=== PATIENT | female | born 1995 | race Caucasian/White ===

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

== ENCOUNTER 2017-04-09 13:50 | Emergency (ER) | payer BC, OTHER ==
[~2017-04-09] VITALS: Ht 167.6 cm; Wt 66.5 kg
[~2017-04-09 13:50] MED LIST: BCPILLS PO; DIPH1TAB87 PO
[2017-04-09 13:51] VITALS: TEMP 37; Ht 167.6 cm; Wt 66.5 kg
[2017-04-09] MEDS ORDERED: DiphenhydrAMINE HCL 50 MG/ML VIAL IV STA (14:06)
[2017-04-09] MEDS ORDERED: FAMOTIDINE IV INJ 20 MG in DEXTROSE 5% 100ML 100 ML IV STA (14:06)
[2017-04-09] MEDS ORDERED: DEXAMETHASONE INJ 10 MG in SYRINGE 0 ML IV STA (14:06)
[2017-04-09] MEDS ORDERED: FAMOTIDINE IV INJ 40 MG in DEXTROSE 5% 100ML 100 ML IV STA (14:10)
--- NOTE | 2017-04-09 14:16 | EMERGENCY ROOM VISIT NOTE ---
History First contact with patient: 14:06 Chief Complaint: ALLERGIC REACTION Stated Complaint: ALLERGIC REACTION Nursing Triage Summary: patient ate at a salad bar and had possible cross contamination of nuts. History of Present Illness The patient is a 21 year old female who presents to the Emergency Room with complaints of allergic reaction She finished class and then went to the salad bar. She had a salad and soon after started to feel her chest start to feel tight. She then developed hives on her chest and back and she came to the emergency department. She did not use her epi-pen which she has on her because she is allergic to nuts. She was in the ED last year for similar symptoms but were due to obvious ingestion of peanut oil. She believes that this time the salad bar was contaminated with nuts and therefore caused her reaction Here in the ED she continues to have chest tightness, tingling in her throat, shortness of breath Review of Systems CONSTITUTIONAL: No fever, chills, sweats or night sweats. No recent infections. No weight loss or weight gain. NEUROLOGIC: No headaches, dizziness or syncopal episodes. HEENT: No hearing or visual changes. No sinus or nasal issues. No mouth sores, thrush or oral lesions. CARDIOVASCULAR: No chest pain or palpitations. RESPIRATORY: N L: No nausea, vomiting, diarrhea, constipation, reflux, melena or hematochezia. GENITOURINARY: No dysuria, frequency, urgency, incontinence or hematuria. SKIN: Rash on chest and upper back HEMATOLOGIC: No bleeding or abnormal bruising Past Medical/Surgical History Medical Problems: (1) Allergy to nuts Social History Smoking Status: Never Smoker Alcohol Use: none Drug Use: none Occupation Status: [email or web address] student Current/Historical Medications Scheduled Control Pills ( Control Pills), 1 TAB PO HS Scheduled PRN Diphenhydramine Hcl (Benadryl Allergy), 50 MG PO Q6 PRN for ALLERGIC REACTION Allergies NKDA Physical Exam Vital Signs Date Time Temp Pulse Resp B/P (MAP) Pulse Ox O2 Delivery O2 Flow Rate FiO2 04/09/17 15:53 79 16 108/56 96 04/09/17 14:04 118 04/09/17 13:58 97 Room Air 04/09/17 13:51 37.0 124 20 131/80 97 Room Air Physical Exam General: patient appears tearful and anxious HEENT: Head - normocephalic and atraumatic. Pupils are equal, round, and reactive to light. Extraocular eye muscles are intact and sclera are anicteric. Nose - moist nasal mucosa without discharge. Mouth - moist buccal mucosa. Oropharynx is nonerythematous and there is no tonsillar exudate or edema noted. Neck: Supple; no JVD, nuchal rigidity, cervical lymphadenopathy, or auscultated bruits. Heart: Regular rate and rhythm. There is a normal S1 and S2 with no murmurs, clicks, or gallops appreciated. Patchy raised erythematous rash on upper chest and back Lungs: Clear to auscultation bilaterally with no wheezes, rales, or rhonchi. Abdomen: Soft, completely nontender, nondistended, with good bowel sounds. There are no palpable pulsatile masses or hepatosplenomegaly. There is no guarding, rigidity, or rebound noted. Extremities: No evidence of cyanosis, clubbing, or edema. There are easily palpable peripheral pulses. Medical Decision & Procedures Medications Administered Medications (Trade) Dose Ordered Sig/Danielle Route Start Time Stop Time Status Last Admin Dose Admin Diphenhydramine HCl (Benadryl Inj) 50 mg NOW STAT IV 04/09/17 14:06 04/09/17 14:09 DC 04/09/17 14:24 50 MG Famotidine 40 mg/ Dextrose 104 ml @ 200 mls/hr NOW STAT IV 04/09/17 14:10 04/09/17 14:41 DC 04/09/17 14:23 200 MLS/HR Dexamethasone Sodium Phosphate (Dexamethasone Inj Pf) 10 mg STK-MED ONCE .ROUTE 04/09/17 14:20 04/09/17 14:21 DC 04/09/17 14:24 10 MG Sodium Chloride 1,000 ml @ 999 mls/hr Q1H1M STAT IV 04/09/17 14:30 04/09/17 15:30 DC 04/09/17 14:47 999 MLS/HR ED Course 1330 - the patient was examined in c12. A full history and examination were performed 1345 - I discussed the case with Dr. Stark and I ordered the patient decadron, benadryl and famotidine IV 1410 - patient was reassessed and was feeling much better. Her only symptom is fatigue. Dr. Stark to discharge patient home Medical Decision The patient's history was concerning for possible allergic reaction. Differential diagnosis: Etiologies such as allergic reaction, anaphylaxis, urticaria, Rocha-Monico syndrome, toxic epidermal necrolysis, erythema multiforme, cellulitis, as well as others were entertained. Patient came in with hives after eating at a salad. She did not have any difficulty speaking and no wheezing or decreased breath sounds on exam. She was tachycardic when I saw her but otherwise was speaking in full sentences and was saturating well at room air. She was given decadron, famotidine and benadryl IV in ED. She was also given NS IVF. On reassessment she was without any symptoms without fatigue and she was feeling much better. She was discharged with follow up with her PCP Impression Primary Impression: Allergic reaction Departure Information Dispostion Home / Self-Care Condition GOOD Referrals [facility] (PCP) Patient Instructions My [facility] Problem Qualifiers Primary Impression: Allergic reaction Encounter type: subsequent encounter Qualified Codes: T78.40XD - Allergy, unspecified, subsequent encounter
[2017-04-09] MEDS ORDERED: DEXAMETHASONE **PF** INJ 10 MG/ML VIAL ONE (14:20)
[2017-04-09] MEDS ORDERED: SODIUM CHLORIDE 0.9% 1000ML 1,000 ML IV STA (14:30)
[2017-04-09 15:53] VITALS: BP 108/56; PULSE 79; O2SAT 96
--- NOTE | 2017-04-09 16:59 | EMERGENCY ROOM VISIT NOTE ---
History Report prepared by Ashley: Pawel Keane Under the Supervision of: Dr. Supa Stark D.O. First contact with patient: 13:54 Chief Complaint: ALLERGIC REACTION Stated Complaint: ALLERGIC REACTION Nursing Triage Summary: patient ate at a salad bar and had possible cross contamination of nuts. History of Present Illness The patient is a 21 year old female who presents to the Emergency Room with complaints of a persistent allergic reaction starting around 1300 today. The patient has an allergy to nuts, and she at a salad at a salad bar. She states that she did not eat any nuts though thinks that there might have been some contamination. The patient states that she is having hives mostly on her chest and back, redness, abdominal pain, chest tightness, and throat tightness. The patient reports that she has had two similar episodes in the past. She has not taken any medications, and she is able to swallow. The patient additionally notes that she has a cold. The patient denies any nausea, vomiting, and diarrhea. Source of History: patient Onset: 1300 Position: other (global) Quality: other (allergic reaction) Timing: other (persistent) Associated Symptoms: + chest pain (tightness), + SOB, + abdominal pain, No nausea, No vomiting Note: Throat tightness, hives, redness Review of Systems See HPI for pertinent positives & negatives. A total of 10 systems reviewed and were otherwise negative. Past Medical & Surgical Medical Problems: (1) Allergy to nuts Social History Smoking Status: Never Smoker Alcohol Use: none Drug Use: none Occupation Status: [employer] student Current/Historical Medications Scheduled Control Pills ( Control Pills), 1 TAB PO HS Scheduled PRN Diphenhydramine Hcl (Benadryl Allergy), 50 MG PO Q6 PRN for ALLERGIC REACTION Allergies Coded Allergies: Ibuprofen (Unverified Allergy, Unknown, UNKNOWN, 04/09/17) NUTS (Unverified Allergy, Unknown, HIVES, 04/09/17) Physical Exam Vital Signs Date Time Temp Pulse Resp B/P (MAP) Pulse Ox O2 Delivery O2 Flow Rate FiO2 04/09/17 15:53 79 16 108/56 96 04/09/17 14:04 118 04/09/17 13:58 97 Room Air 04/09/17 13:51 37.0 124 20 131/80 97 Room Air Physical Exam GENERAL: Sitting up in bed, talking in full sentences, no acute distress, non- toxic EYE EXAM: normal conjunctiva. OROPHARYNX: no exudate, no erythema, lips, buccal mucosa, and tongue normal and mucous membranes are moist NECK: no stridor, supple, no nuchal rigidity, no adenopathy, non-tender LUNGS: Clear to auscultation. Normal chest wall mechanics HEART: Tachycardic, no murmurs, S1 normal and S2 normal ABDOMEN: abdomen soft, non-tender, normo-active bowel sounds, no masses, no rebound or guarding. BACK: Back is symmetrical on inspection and there is no deformity, no midline tenderness, no CVA tenderness. SKIN: Diffuse erythematous blanching raised rash on the chest and back. No petechiae, no bruising UPPER EXTREMITIES: upper extremities are grossly normal. LOWER EXTREMITIES: No pitting edema. NEURO EXAM: Normal sensorium, cranial nerves II-XII grossly intact, normal speech, no gross weakness of arms, no gross weakness of legs. Gross sensation intact. Medical Decision & Procedures Medications Administered Medications (Trade) Dose Ordered Sig/Danielle Route Start Time Stop Time Status Last Admin Dose Admin Diphenhydramine HCl (Benadryl Inj) 50 mg NOW STAT IV 04/09/17 14:06 04/09/17 14:09 DC 04/09/17 14:24 50 MG Famotidine 40 mg/ Dextrose 104 ml @ 200 mls/hr NOW STAT IV 04/09/17 14:10 04/09/17 14:41 DC 04/09/17 14:23 200 MLS/HR Dexamethasone Sodium Phosphate (Dexamethasone Inj Pf) 10 mg STK-MED ONCE .ROUTE 04/09/17 14:20 04/09/17 14:21 DC 04/09/17 14:24 10 MG Sodium Chloride 1,000 ml @ 999 mls/hr Q1H1M STAT IV 04/09/17 14:30 04/09/17 15:30 DC 04/09/17 14:47 999 MLS/HR ED Course ED COURSE: Vital signs were reviewed and showed tachycardia The patients medical record was reviewed The above diagnostic studies were performed and reviewed. ED treatments and interventions as stated above. 1354: The patient was evaluated in room A12. A complete history and physical examination was performed. 1406: Benadryl 50mg IV 1410: Famotidine 40mg/ Dextrose 104ml @ 200mls/hr IV 1420: Dexamethasone Sodium Phosphate 10mg IV 1430: Sodium Chloride 1000 ml @ 999 mls/hr IV 1431: I reevaluated the patient, and she is feeling better, she is breathing better, and her rash is better. She just feels dizzy now. 1524: Upon reevaluation, the patient is doing better.I discussed my findings with the patient and she understands and agrees with the treatment plan. Based on the patients age, coexisting illnesses, exam and lab findings the decision to treat as an outpatient was made. The patient remained stable while under my care. The patient appeared well at the time of discharge. Medical Decision Differential diagnosis: Etiologies such as allergic reaction, anaphylaxis, urticaria, Rocha-Monico syndrome, toxic epidermal necrolysis, erythema multiforme, cellulitis, as well as others were entertained. Patient is a 21-year-old female who was seen independently of the resident that presents to ER on eating a salad 45 minutes ago with a diffuse erythematous blanching rash which appears to be hives. Patient admits mild tightness in her throat and trouble breathing. IV was established and patient was given steroids , Benadryl and famotidine. Patient had complete resolution of her symptoms. She was observed for close to hours. She was able tolerate liquids without trouble. Patient had no new complaints pressures discharged follow-up with PCP as an outpatient. Discussed with Pt concerning signs and symptoms to watch out for. Pt was instructed to follow up with their PCP and discussed with the patient their option to return to the ED at anytime for persistent or worsening symptoms. The appropriate anticipatory guidance and out-patient management, including indications for return to the emergency department, were explained at length to the patient and understood. Medication Reconcilliation Current Medication List: was personally reviewed by me Blood Pressure Screening Patient's blood pressure: Normal blood pressure Impression Primary Impression: Allergic reaction Scribe Attestation The scribe's documentation has been prepared under my direction and personally reviewed by me in its entirety. I confirm that the note above accurately reflects all work, treatment, procedures, and medical decision making performed by me. Departure Information Dispostion Home / Self-Care Referrals [facility] (PCP) Forms HOME CARE DOCUMENTATION FORM, IMPORTANT VISIT INFORMATION Patient Instructions ED Allergic Reaction General Other, My [facility] Additional Instructions Please follow up with your primary care doctor or if you are a student, [facility] with in the next 24 hours. Any worsening of your symptoms, please return to the ED immediately. This includes any fevers greater than 100.4, worsening pain, trouble breathing, trouble swallowing, swelling of the throat, chest pain, shortness breath, persistent nausea, vomiting, unable to eat or drink, or any other concerning signs or symptoms from your standpoint. You were given medications during this visit that will inhibit your ability to drive, operate machinery and work. Please do NOT drive, operate machinery, drink alcohol or work for the next 12hrs. If any of your symptoms recur please take 50 mg of Benadryl 36 hours or return immediately to the ER if anything worsens after the Benadryl. Problem Qualifiers Primary Impression: Allergic reaction Encounter type: initial encounter Qualified Codes: T78.40XA - Allergy, unspecified, initial encounter
== END 2017-04-09 15:55 | disposition home or self-care (01) ==
LOC: C.EDB 13:51 → C.EDA 15:55
DX: T78.1XXA Other adverse food reactions, not elsewhere classified, initial encounter (principal); X58.XXXA Exposure to other specified factors, initial encounter; Z91.010 Allergy to peanuts; Z79.3 Long term (current) use of hormonal contraceptives

== ENCOUNTER 2017-07-09 14:05 | Emergency (ER) | payer OTHER ==
[~2017-07-09] VITALS: Ht 165.1 cm; Wt 72.6 kg
[2017-07-09] MEDS ORDERED: METHYLPREDNISOLONE 125 MG VIAL IV STA (14:16)
[2017-07-09 14:17] VITALS: TEMP 36.4; Ht 165.1 cm; Wt 72.6 kg
[2017-07-09] MEDS ORDERED: BCPILLS PO (14:52)
[2017-07-09 14:54] LABS: HEMATOCRIT 40.3 % (37-47); HEMOGLOBIN 14.5 g/dL (12.0-16.0); MEAN CELL VOLUME 86.3 fL (80-100); MEAN PLATELET VOLUME 10.4 fL (7.4-10.4); PLATELET COUNT 439 K/uL (130-400); RED CELL DISTRIBUTION WIDTH CV 12.1 % (11.5-14.5); RED CELL DISTRIBUTION WIDTH SD 37.9 fL (36.4-46.3); WHITE BLOOD COUNT 10.85 K/uL (4.8-10.8)
--- NOTE | 2017-07-09 14:57 | DIAGNOSTIC IMAGING REPORT ---
CHEST ONE VIEW PORTABLE CLINICAL HISTORY: Chest pain. COMPARISON STUDY: No previous studies for comparison. FINDINGS: Lung volumes are at the lower limits of normal. There is no consolidation. No pneumothorax or pleural effusion is present. Cardiac size is normal. Mediastinal contours are normal. IMPRESSION: No acute cardiopulmonary findings. Electronically signed by: Edmund Roman M.D. 07/09/2017 2:56 PM Dictated Date/Time: 07/09/2017 2:55 PM
[2017-07-09 15:12] LABS: BLOOD UREA NITROGEN 14 mg/dl (7-18); CALCIUM 9.5 mg/dl (8.5-10.1); CARBON DIOXIDE 19 mmol/L (21-32); CREATININE 0.95 mg/dl (0.60-1.20); GLUCOSE 108 mg/dl (70-99); POTASSIUM 2.9 mmol/L (3.5-5.1); SODIUM 139 mmol/L (136-145)
[2017-07-09 15:19] LABS: BASO % 0.2 %; BASO ABS # 0.02 K/uL (0-0.2); EOS % 1.8 %; EOS ABS # 0.19 K/uL (0-0.5); IG# 0.04 K/uL (0.00-0.02); LYMPH % 53.1 %; LYMPH ABS # 5.76 K/uL (1.2-3.4); MONO ABS # 0.43 K/uL (0.11-0.59); NEUT % 40.5 %; NEUT ABS # 4.41 K/uL (1.4-6.5)
[2017-07-09] MEDS ORDERED: EPP3/2 IM (17:31)
[2017-07-09] MEDS ORDERED: PRED50TA PO (17:31)
[2017-07-09 18:37] VITALS: BP 99/49; PULSE 73; O2SAT 98
--- NOTE | 2017-07-09 20:57 | EMERGENCY ROOM VISIT NOTE ---
History First contact with patient: 14:15 Chief Complaint: ALLERGIC REACTION Stated Complaint: ALLERGIC REACTION Nursing Triage Summary: PT ARRIVED VIA EMS FROM [facility] FOR POSSIBLE ALLERGIC REACTION. PT STATES SHE WAS WORKING OUT AND BEGAN TO FEEL FACE/NECK/CHEST TIGHTNESS, STATES BECAME SHOB AT THAT TIME, SELF ADMINISTERED EPIPEN. EMS ON SCENE GAVE PT 4MG ZOFRAN , 50MG BENADRYL FOR NAUSEA, PT DRY HEAVING AT THAT TIME. History of Present Illness The patient is a 21 year old female who presents to the Emergency Room via ALS ambulance with complaints of an anaphylactic reaction while working out this afternoon. At approximately 1:30 PM, the patient reports that she started to develop facial swelling, burning, chest tightness and a rash. The patient self administered an EpiPen, and called 911. At the time of EMS arrival, the patient was significantly nauseated. She was administered IV Zofran and Benadryl. She was then transported to the emergency department, and currently reports significant improvement of her symptoms, except for feeling anxious and jittery. She denies any throat/tongue/lip swelling, shortness of breath, chest pressure or pain, palpitations, nausea or headache. The patient has a known history of peanut allergies. The patient reports that she ate sushi for lunch. She ate sushi at a restaurant that she has eaten at before. Patient also reports a history of seasonal allergies. She is currently under the management of an insole channeler at home. The patient denies any other recent upper respiratory infections. Review of Systems HEENT: Denies dizziness, visual problems, hearing loss, tinnitus. Denies difficulty swallowing or oral lesions. PULMONARY: Denies cough, shortness of breath, sputum production or hemoptysis. CARDIOVASCULAR: Denies chest pain, palpitations, dyspnea on exertion, orthopnea or peripheral edema. GASTROINTESTINAL: Denies diarrhea, constipation, nausea, vomiting, or abdominal pain. GENITOURINARY: Denies dysuria, frequency, urgency or nocturia. NEUROLOGIC: Denies history of epilepsy, CVA, TIA or chronic headaches. MUSCULOSKELETAL: Denies history of joint tenderness/swelling. SKIN: Denies rashes or lesions. PSYCHIATRIC: Denies history of depression or mental illness. ENDOCRINE: Denies history of diabetes or thyroid disorders. Past Medical/Surgical History Medical Problems: (1) Allergy to nuts (2) Seasonal allergies Surgical Problems: (1) No history of previous surgery Family History Unremarkable Social History Smoking Status: Never Smoker Alcohol Use: occasionally Marital Status: single Housing Status: lives with roommate Occupation Status: [employer] student Current/Historical Medications Scheduled Control Pills ( Control Pills), 1 TAB PO HS Control Pills ( Control Pills), 1 TAB PO DAILY Epinephrine (Epipen), 0.3 MG IM UD Prednisone (Prednisone), 50 MG PO DAILY Scheduled PRN Diphenhydramine Hcl (Benadryl Allergy), 50 MG PO Q6 PRN for ALLERGIC REACTION Physical Exam Vital Signs Date Time Temp Pulse Resp B/P (MAP) Pulse Ox O2 Delivery O2 Flow Rate FiO2 07/09/17 18:37 73 16 99/49 98 07/09/17 17:26 73 16 99/49 98 Room Air 07/09/17 15:09 99 07/09/17 14:17 36.4 84 18 115/59 100 Room Air 07/09/17 14:12 Room Air Physical Exam CONSTITUTIONAL: Healthy and well nourished. Alert and oriented X 3 with positive affect. Patient does not appear in any acute distress. HEENT: Normocephalic, atraumatic. Pupils equal, round and reactive. No facial edema, conjunctival injection or scleral icterus. OROPHARYNX: No evidence for angioedema, posterior pharyngeal erythema, tonsillar hypertrophy or exudates. NECK: Full active range of motion without discomfort. RESPIRATORY: Clear to auscultation bilaterally with no wheezing, crackles, rhonchi or stridor. CARDIOVASCULAR: Tachycardic on my exam with no murmurs, rubs or gallops. GASTROINTESTINAL: Bowel sounds present in all quadrants. Soft and nontender to palpation. MUSCULOSKELETAL: Full range of motion of all joints without discomfort. INTEGUMENTARY: No rash or other significant dermatologic conditions noted. HEMATOLOGIC: No ecchymosis or petechiae. NEUROLOGIC: Cranial nerves II-XII grossly intact. No focal neurologic deficits noted. Medical Decision & Procedures ER Provider Diagnostic Interpretation: My interpretation of an ECG shows a normal sinus rhythm of [address] elevation or other conduction abnormalities. My interpretation of a portable chest x-ray does not show any consolidations or pneumothorax. Radiologist report is as follows: CHEST ONE VIEW PORTABLE CLINICAL HISTORY: Chest pain. COMPARISON STUDY: No previous studies for comparison. FINDINGS: Lung volumes are at the lower limits of normal. There is no consolidation. No pneumothorax or pleural effusion is present. Cardiac size is normal. Mediastinal contours are normal. IMPRESSION: No acute cardiopulmonary findings. Laboratory Results 07/09/17 14:42 Red Blood Count 4.67, Mean Corpuscular Volume 86.3, Mean Corpuscular Hemoglobin 31.0, Mean Corpuscular Hemoglobin Concent 36.0, Mean Platelet Volume 10.4, Neutrophils (%) (Auto) 40.5, Lymphocytes (%) (Auto) 53.1, Monocytes (%) (Auto) 4.0, Eosinophils (%) (Auto) 1.8, Basophils (%) (Auto) 0.2, Neutrophils # (Auto) 4.41, Lymphocytes # (Auto) 5.76, Monocytes # (Auto) 0.43, Eosinophils # (Auto) 0.19, Basophils # (Auto) 0.02 07/09/17 14:42 Test 07/09/17 14:42 07/09/17 16:22 White Blood Count 10.85 K/uL (4.8-10.8) Red Blood Count 4.67 M/uL (4.2-5.4) Hemoglobin 14.5 g/dL (12.0-16.0) Hematocrit 40.3 % (37-47) Mean Corpuscular Volume 86.3 fL (80-100) Mean Corpuscular Hemoglobin 31.0 pg (25-34) Mean Corpuscular Hemoglobin Concent 36.0 g/dl (32-36) Platelet Count 439 K/uL (130-400) Mean Platelet Volume 10.4 fL (7.4-10.4) Neutrophils (%) (Auto) 40.5 % Lymphocytes (%) (Auto) 53.1 % Monocytes (%) (Auto) 4.0 % Eosinophils (%) (Auto) 1.8 % Basophils (%) (Auto) 0.2 % Neutrophils # (Auto) 4.41 K/uL (1.4-6.5) Lymphocytes # (Auto) 5.76 K/uL (1.2-3.4) Monocytes # (Auto) 0.43 K/uL (0.11-0.59) Eosinophils # (Auto) 0.19 K/uL (0-0.5) Basophils # (Auto) 0.02 K/uL (0-0.2) RDW Standard Deviation 37.9 fL (36.4-46.3) RDW Coefficient of Variation 12.1 % (11.5-14.5) Immature Granulocyte % (Auto) 0.4 % Immature Granulocyte # (Auto) 0.04 K/uL (0.00-0.02) Erythrocyte Sedimentation Rate 18 mm/hr (0-21) D-Dimer 360 ug/L FEU (0-500) Anion Gap 14.0 mmol/L (3-11) Est Creatinine Clear Calc Drug Dose 95.1 ml/min Estimated GFR () 100.6 Estimated GFR (Non- 86.8 BUN/Creatinine Ratio 14.7 (10-20) Calcium Level 9.5 mg/dl (8.5-10.1) Troponin I < 0.015 ng/ml (0-0.045) Medications Administered Medications (Trade) Dose Ordered Sig/Danielle Route Start Time Stop Time Status Last Admin Dose Admin Methylprednisolone Sodium Succinate (Solu-Medrol IV) 125 mg NOW STAT IV 07/09/17 14:16 07/09/17 14:20 DC 07/09/17 14:38 125 MG ED Course Patient history and physical exam were performed. Nurse's notes were reviewed. Vital signs were reviewed and were normal. Patient does not appear in any acute distress on my exam. She does appear somewhat anxious, and was initially tachycardic in the 100s on my exam. IV access was established, and labs were drawn. The patient was administered Solu-Medrol 125 mg IVP. The patient was placed on registered private duty nurse. ECG and portable chest x-ray were normal. The patient was frequently reassessed without any adverse symptoms. She remained hemodynamically stable. Her anxiety/jitteriness did improve. Early in the workup process, the patient was speaking with her mother on the phone, and requested that I talk with her as well. The mother reports that she called the patient's insole channeler, and insole channeler has requested that I order a tryptase level. This was added to her labs. Remaining labs were reviewed and were normal. The patient was observed an additional 4 hours in the emergency department per protocol, and had improving symptoms. The patient felt well enough for discharge. The patient was encouraged to continue with Benadryl over the next few days. She was also encouraged to take Zantac 150 mg twice daily. The patient was provided a prescription for prednisone 50 mg daily 4 days. She was also provided a prescription for another EpiPen to replace the one that she used. The patient was encouraged to avoid any undue stress, exercise or other activities over the next few days. She was instructed to return to the emergency department immediately for any further anaphylactic reaction. The patient reports that she will follow up with her insole channeler. The patient was happy with plan of care, voiced understanding of all discharge instructions, and discharged with friends. Case was also discussed with Dr. Franco, ED attending physician, who agrees with workup and plan of care. Medical Decision Patient presents for treatment of anaphylaxis. Patient has responded nicely. She remained hemodynamically stable. The patient did warrant cardiac monitoring after self administering epinephrine. The patient was at risk for recurrent anaphylactic reaction, and required long-term monitoring with frequent reassessment for stability. Medication Reconcilliation Current Medication List: was personally reviewed by me Blood Pressure Screening Patient's blood pressure: Normal blood pressure Impression Primary Impression: Anaphylaxis Critical Care I have personally spent greater than 30 minutes of critical care time in the direct management of this patient. This includes bedside care, interpretation of diagnostic studies, and testing, discussion with consultants, patient, and family members, and other required patient management activities. This 30 minutes is in excess of all separately billable procedures. Departure Information Dispostion Home / Self-Care Condition GOOD Prescriptions Epinephrine (EPIPEN) 0.3 Mg/0.3 Ml Inj 0.3 MG IM UD, #1 UNIT Prov: Baron Tolbert PA 07/09/17 Prednisone (Prednisone) 50 Mg Tab 50 MG PO DAILY for 4 Days, #4 TAB Prov: Baron Tolbert PA 07/09/17 Forms HOME CARE DOCUMENTATION FORM, IMPORTANT VISIT INFORMATION Patient Instructions My [facility] Additional Instructions Suggest continuing with Benadryl 25-50 mg every 6 hours PLUS Zantac 150 mg twice daily. Take these medications for the next 48 hours. Also take prednisone as prescribed, next dose tomorrow morning. You have been provided a prescription for another EpiPen. Return to the emergency department immediately for any worsening symptoms. Your family doctor/insole channeler can request a copy of your hospital records by calling [phone], and asking for the Medical Records department. For your reference, your tryptase level was drawn at 2:42 PM, which is a little over 1 hour after your allergic reaction onset at around 1:30 PM. Problem Qualifiers Primary Impression: Anaphylaxis Encounter type: initial encounter Qualified Codes: T78.2XXA - Anaphylactic shock, unspecified, initial encounter
== END 2017-07-09 18:38 | disposition home or self-care (01) ==
LOC: EDBD 14:05 → MERGE 14:06 → C.EDA 14:06
DX: T78.2XXA Anaphylactic shock, unspecified, initial encounter (principal); X58.XXXA Exposure to other specified factors, initial encounter; Z91.010 Allergy to peanuts; Z79.3 Long term (current) use of hormonal contraceptives